=== PATIENT | male | born 1980 | race Caucasian/White ===

== ENCOUNTER 2017-02-05 14:07 | Emergency (ER) | payer OTHER ==
[~2017-02-05 14:07] MED LIST: KEP500 PO; TEG200 PO
[2017-02-05 15:47] VITALS: BP 134/89
== END 2017-02-05 15:47 | disposition home or self-care (01) ==
LOC: ED 14:07
DX: S52.134A Nondisplaced fracture of neck of right radius, initial encounter for closed fracture (principal); G40.909 Epilepsy, unspecified, not intractable, without status epilepticus; Z87.820 Personal history of traumatic brain injury; W01.0XXA Fall on same level from slipping, tripping and stumbling without subsequent striking against object, initial encounter; Y93.E1 Activity, personal bathing and showering; Y92.89 Other specified places as the place of occurrence of the external cause; Y99.8 Other external cause status

== ENCOUNTER 2017-08-09 22:37 | Emergency (ER) | payer OTHER ==
[~2017-08-09] VITALS: Ht 172.7 cm; Wt 86.2 kg
[2017-08-09 22:48] VITALS: Ht 172.7 cm; Wt 86.2 kg
[2017-08-10 01:22] LABS: AMPHETAMINE QUAL UR NONE DETECTED (NEG <=1000)
[2017-08-10 01:28] LABS: CALCIUM 8.9 mg/dL (8.5-10.1); CARBON DIOXIDE 27.8 mmol/L (21-32); CHLORIDE SERUM 101 mmol/L (98-107); CREATININE SERUM 0.7 mg/dL (0.7-1.3); GFR1 > 60 mL/min; GLUCOSE SERUM 99 mg/dL (74-106); POTASSIUM SERUM 4.4 mmol/L (3.5-5.1); SODIUM SERUM 138 mmol/L (136-145)
[2017-08-10 01:53] VITALS: BP 122/75
== END 2017-08-10 01:53 | disposition home or self-care (01) ==
LOC: ED 22:37
PROVIDERS: Emergency Medicine
DX: R56.9 Unspecified convulsions (principal)
CPT/HCPCS: 36415; G0480

== ENCOUNTER 2017-10-18 16:09 | Emergency (ER) | payer OTHER ==
[~2017-10-18] VITALS: Ht 172.7 cm; Wt 72.6 kg
[2017-10-18 16:16] VITALS: Ht 172.7 cm; Wt 72.6 kg
[2017-10-18 16:56] LABS: BASOPHIL % 0.6 % (0-2); PLATELET COUNT 256 x10^3mcL (130-400); RED CELL DISTRIBUTION WIDTH 13.4 % (11.5-14.5)
[2017-10-18 17:15] LABS: CALCIUM 8.3 mg/dL (8.5-10.1); CARBON DIOXIDE 25.1 mmol/L (21-32); CHLORIDE SERUM 99 mmol/L (98-107); CREATININE SERUM 0.7 mg/dL (0.7-1.3); GFR1 > 60 mL/min; GLUCOSE SERUM 101 mg/dL (74-106); POTASSIUM SERUM 4.1 mmol/L (3.5-5.1); SODIUM SERUM 133 mmol/L (136-145)
[2017-10-18 17:27] LABS: ALBUMIN 3.7 g/dL (3.4-5.0); ALKALINE PHOSPHATASE 100 U/L (46-116); ALT/SGPT 22 U/L (16-63); AST/SGOT 15 U/L (15-37); BILIRUBIN TOTAL 0.2 mg/dL (0.20-1.00); HDL CHOLESTEROL 45 mg/dL (40-60); TOTAL PROTEIN, SERUM 7.8 g/dL (6.4-8.2); TRIGLYCERIDES 134 mg/dL (<150)
[2017-10-18 17:29] LABS: T3 TOTAL 1.05 ng/mL
[2017-10-18 17:33] LABS: FREE T4 0.69 ng/dL (0.76-1.46); FREE THYROXINE INDEX 1.6 ug/dL (1.4-4.5); T4(THYROXINE) 4.9 ug/dL (4.7-13.3)
[2017-10-18 17:50] LABS: UA SPECIFIC GRAVITY 1.025 (1.005-1.035); microscopic required? YES; urine erythrocyte 1+ (NEGATIVE)
[2017-10-18 18:31] LABS: CHOLESTEROL 165 mg/dL (<200); CHOLESTEROL/HDL RATIO 3.7
[2017-10-18 18:50] VITALS: BP 117/73
== END 2017-10-18 18:50 | disposition home or self-care (01) ==
LOC: ED 16:09
PROVIDERS: Specialist
DX: S06.9X0A Unspecified intracranial injury without loss of consciousness, initial encounter (principal); G40.909 Epilepsy, unspecified, not intractable, without status epilepticus; R53.1 Weakness; X58.XXXA Exposure to other specified factors, initial encounter; Y93.89 Activity, other specified; Y92.89 Other specified places as the place of occurrence of the external cause; Y99.8 Other external cause status
CPT/HCPCS: 36415; 83880; 84439; J7030

== ENCOUNTER 2018-02-09 20:21 | Emergency (ER) | payer OTHER ==
[~2018-02-09] VITALS: Ht 170.2 cm; Wt 86.2 kg
[2018-02-09 21:18] VITALS: Ht 170.2 cm; Wt 86.2 kg
[2018-02-09 21:24] LABS: BASOPHIL % 0.3 % (0-2); PLATELET COUNT 291 x10^3mcL (130-400); RED CELL DISTRIBUTION WIDTH 13.4 % (11.5-14.5)
[2018-02-09] MEDS ORDERED: CITALOPRAM HYDR10 M1 PO (21:27)
[2018-02-09 21:33] LABS: CALCIUM 8.6 mg/dL (8.5-10.1); CARBON DIOXIDE 28.5 mmol/L (21-32); CHLORIDE SERUM 101 mmol/L (98-107); CREATININE SERUM 0.8 mg/dL (0.7-1.3); GFR1 > 60 mL/min; GLUCOSE SERUM 68 mg/dL (74-106); POTASSIUM SERUM 3.7 mmol/L (3.5-5.1); SODIUM SERUM 136 mmol/L (136-145)
[2018-02-09 21:36] LABS: ALBUMIN 3.9 g/dL (3.4-5.0); ALKALINE PHOSPHATASE 91 U/L (46-116); ALT/SGPT 31 U/L (16-63); AST/SGOT 20 U/L (15-37); BILIRUBIN TOTAL 0.2 mg/dL (0.20-1.00); MAGNESIUM 1.9 mg/dL (1.8-2.4); TOTAL PROTEIN, SERUM 7.9 g/dL (6.4-8.2)
[2018-02-09 22:02] LABS: UA SPECIFIC GRAVITY 1.015 (1.005-1.035); microscopic required? YES; urine erythrocyte TRACE (NEGATIVE)
[2018-02-09 22:15] LABS: AMPHETAMINE QUAL UR NONE DETECTED (See below)
[2018-02-10 00:12] VITALS: BP 124/83
== END 2018-02-10 00:12 | disposition home or self-care (01) ==
LOC: ED 20:21
PROVIDERS: Emergency Medicine
DX: G40.909 Epilepsy, unspecified, not intractable, without status epilepticus (principal); G81.91 Hemiplegia, unspecified affecting right dominant side; Z98.2 Presence of cerebrospinal fluid drainage device
CPT/HCPCS: G0480; J2060

== ENCOUNTER 2018-03-10 19:53 | Emergency (ER) | payer OTHER ==
[~2018-03-10] VITALS: Ht 177.8 cm; Wt 83.9 kg
[~2018-03-10 19:53] MED LIST changes: +CITALOPRAM HYDR10 M1 PO
[2018-03-10 19:58] VITALS: Ht 177.8 cm; Wt 83.9 kg
[2018-03-10 21:15] LABS: UA SPECIFIC GRAVITY >=1.030 (1.005-1.035); microscopic required? YES; urine erythrocyte TRACE (NEGATIVE)
[2018-03-10 21:26] LABS: AMPHETAMINE QUAL UR NONE DETECTED (See below)
[2018-03-10 21:40] LABS: BASOPHIL % 0.2 % (0-2); PLATELET COUNT 252 x10^3mcL (130-400); RED CELL DISTRIBUTION WIDTH 13.6 % (11.5-14.5)
[2018-03-10 21:43] LABS: CALCIUM 8.6 mg/dL (8.5-10.1); CARBON DIOXIDE 27.1 mmol/L (21-32); CHLORIDE SERUM 105 mmol/L (98-107); CREATININE SERUM 0.7 mg/dL (0.7-1.3); GFR1 > 60 mL/min; GLUCOSE SERUM 107 mg/dL (74-106); POTASSIUM SERUM 3.9 mmol/L (3.5-5.1); SODIUM SERUM 141 mmol/L (136-145)
[2018-03-10 21:48] LABS: ALBUMIN 3.8 g/dL (3.4-5.0); ALKALINE PHOSPHATASE 98 U/L (46-116); ALT/SGPT 33 U/L (16-63); AST/SGOT 19 U/L (15-37); BILIRUBIN TOTAL 0.2 mg/dL (0.20-1.00)
[2018-03-10 21:51] LABS: TOTAL PROTEIN, SERUM 8.3 g/dL (6.4-8.2)
[2018-03-10 22:58] VITALS: BP 118/75
== END 2018-03-10 22:58 | disposition home or self-care (01) ==
LOC: ED 19:53
PROVIDERS: Emergency Medicine
DX: G40.909 Epilepsy, unspecified, not intractable, without status epilepticus (principal)
CPT/HCPCS: 36415; 83880; 90658; G0480

== ENCOUNTER 2018-07-16 19:34 | Emergency (ER) | payer OTHER ==
[~2018-07-16] VITALS: Ht 175.3 cm; Wt 86.2 kg
[2018-07-16 19:39] VITALS: Ht 175.3 cm; Wt 86.2 kg
[2018-07-16 21:06] LABS: CALCIUM 9.2 mg/dL (8.5-10.1); CHLORIDE SERUM 97 mmol/L (98-107); CREATININE SERUM 0.9 mg/dL (0.7-1.3); GFR1 > 60 mL/min; GLUCOSE SERUM 92 mg/dL (74-106); POTASSIUM SERUM 4.4 mmol/L (3.5-5.1); SODIUM SERUM 135 mmol/L (136-145)
[2018-07-16 22:57] VITALS: BP 125/76
== END 2018-07-16 22:57 | disposition home or self-care (01) ==
LOC: ED 19:34
PROVIDERS: Emergency Medicine
DX: G40.909 Epilepsy, unspecified, not intractable, without status epilepticus (principal); Z87.820 Personal history of traumatic brain injury

== ENCOUNTER 2018-08-15 20:52 | Emergency (ER) | payer OTHER ==
[~2018-08-15] VITALS: Ht 175.3 cm; Wt 81.6 kg
[2018-08-15 21:10] VITALS: Ht 175.3 cm; Wt 81.6 kg
[2018-08-15 22:35] LABS: CALCIUM 8.6 mg/dL (8.5-10.1); CARBON DIOXIDE 27.5 mmol/L (21-32); CHLORIDE SERUM 95 mmol/L (98-107); CREATININE SERUM 0.8 mg/dL (0.7-1.3); GFR1 > 60 mL/min; GLUCOSE SERUM 103 mg/dL (74-106); SODIUM SERUM 131 mmol/L (136-145)
[2018-08-15 23:37] VITALS: BP 130/78
== END 2018-08-15 23:37 | disposition home or self-care (01) ==
LOC: ED 20:52
PROVIDERS: Specialist
DX: G40.509 Epileptic seizures related to external causes, not intractable, without status epilepticus (principal); Z98.890 Other specified postprocedural states
CPT/HCPCS: 36415

== ENCOUNTER 2018-10-17 07:23 | Emergency (ER) | payer OTHER ==
[~2018-10-17] VITALS: Ht 165.1 cm; Wt 72.6 kg
[2018-10-17 07:28] VITALS: Ht 165.1 cm; Wt 72.6 kg
[2018-10-17 08:04] LABS: CALCIUM 9.1 mg/dL (8.5-10.1); CARBON DIOXIDE 25.8 mmol/L (21-32); CHLORIDE SERUM 99 mmol/L (98-107); CREATININE SERUM 0.8 mg/dL (0.7-1.3); GFR1 > 60 mL/min; GLUCOSE SERUM 98 mg/dL (74-106); POTASSIUM SERUM 4.3 mmol/L (3.5-5.1); SODIUM SERUM 137 mmol/L (136-145)
[2018-10-17 08:18] LABS: ALBUMIN 3.9 g/dL (3.4-5.0); ALKALINE PHOSPHATASE 97 U/L (46-116); ALT/SGPT 29 U/L (16-63); AST/SGOT 17 U/L (15-37); BILIRUBIN TOTAL 0.23 mg/dL (0.20-1.00)
[2018-10-17 08:26] LABS: TOTAL PROTEIN, SERUM 8.3 g/dL (6.4-8.2)
[2018-10-17 09:07] LABS: BASOPHIL % 0.3 % (0-2); PLATELET COUNT 315 x10^3mcL (130-400); RED CELL DISTRIBUTION WIDTH 13.7 % (11.5-14.5)
[2018-10-17 11:10] VITALS: BP 122/80
== END 2018-10-17 11:10 | disposition home or self-care (01) ==
LOC: ED 07:23
PROVIDERS: Emergency Medicine
DX: G40.909 Epilepsy, unspecified, not intractable, without status epilepticus (principal); S06.9X0A Unspecified intracranial injury without loss of consciousness, initial encounter; Z98.890 Other specified postprocedural states; X58.XXXA Exposure to other specified factors, initial encounter; Y93.89 Activity, other specified; Y92.89 Other specified places as the place of occurrence of the external cause; Y99.8 Other external cause status
CPT/HCPCS: 36415

== ENCOUNTER 2018-11-02 19:50 | Emergency (ER) | payer OTHER ==
[~2018-11-02] VITALS: Ht 175.3 cm; Wt 77.1 kg
[2018-11-02 19:54] VITALS: Ht 175.3 cm; Wt 77.1 kg
[2018-11-02 22:32] LABS: BASOPHIL % 0.6 % (0-2); PLATELET COUNT 293 x10^3mcL (130-400); RED CELL DISTRIBUTION WIDTH 13.7 % (11.5-14.5)
[2018-11-02 22:49] LABS: CALCIUM 8.9 mg/dL (8.5-10.1); CHLORIDE SERUM 98 mmol/L (98-107); CREATININE SERUM 0.9 mg/dL (0.7-1.3); GFR1 > 60 mL/min; GLUCOSE SERUM 100 mg/dL (74-106); POTASSIUM SERUM 4.3 mmol/L (3.5-5.1); SODIUM SERUM 134 mmol/L (136-145)
[2018-11-02 22:54] LABS: ALBUMIN 3.8 g/dL (3.4-5.0); ALKALINE PHOSPHATASE 99 U/L (46-116); ALT/SGPT 25 U/L (16-63); AST/SGOT 14 U/L (15-37); BILIRUBIN TOTAL 0.2 mg/dL (0.20-1.00); TOTAL PROTEIN, SERUM 8.1 g/dL (6.4-8.2)
[2018-11-02 23:33] VITALS: BP 136/92
== END 2018-11-02 23:33 | disposition home or self-care (01) ==
LOC: ED 19:50
PROVIDERS: Emergency Medicine
DX: G40.909 Epilepsy, unspecified, not intractable, without status epilepticus (principal); R89.2 Abnormal level of other drugs, medicaments and biological substances in specimens from other organs, systems and tissues; G91.9 Hydrocephalus, unspecified
CPT/HCPCS: 36415; Q0092

== ENCOUNTER 2018-11-25 11:26 | Emergency (ER) | payer OTHER ==
[~2018-11-25] VITALS: Ht 180.3 cm; Wt 95.3 kg
[2018-11-25 11:28] VITALS: Ht 180.3 cm; Wt 95.3 kg
[2018-11-25 14:01] VITALS: BP 120/77
== END 2018-11-25 15:41 | disposition home or self-care (01) ==
LOC: ED 11:26
DX: G40.909 Epilepsy, unspecified, not intractable, without status epilepticus (principal); G80.9 Cerebral palsy, unspecified; Z98.890 Other specified postprocedural states

== ENCOUNTER 2018-12-10 20:17 | Emergency (ER) | payer OTHER ==
[~2018-12-10] VITALS: Ht 175.3 cm; Wt 63.5 kg
[2018-12-10 20:23] VITALS: Ht 175.3 cm; Wt 63.5 kg
[2018-12-10 21:22] LABS: BASOPHIL % 0.8 % (0-2); PLATELET COUNT 309 x10^3mcL (130-400); RED CELL DISTRIBUTION WIDTH 13.4 % (11.5-14.5)
[2018-12-10 21:34] LABS: CALCIUM 9.4 mg/dL (8.5-10.1); CARBON DIOXIDE 25.2 mmol/L (21-32); CHLORIDE SERUM 98 mmol/L (98-107); CREATININE SERUM 0.7 mg/dL (0.7-1.3); GFR1 > 60 mL/min; GLUCOSE SERUM 110 mg/dL (74-106); SODIUM SERUM 133 mmol/L (136-145)
[2018-12-10 21:38] LABS: ALKALINE PHOSPHATASE 89 U/L (46-116); ALT/SGPT 22 U/L (16-63); AST/SGOT 14 U/L (15-37)
[2018-12-10 22:49] VITALS: BP 116/72
== END 2018-12-10 22:49 | disposition home or self-care (01) ==
LOC: ED 20:17
PROVIDERS: Emergency Medicine
DX: G40.909 Epilepsy, unspecified, not intractable, without status epilepticus (principal); Z98.890 Other specified postprocedural states
CPT/HCPCS: 36415

== ENCOUNTER 2019-01-25 19:00 | Emergency (ER) | payer OTHER ==
[~2019-01-25] VITALS: Ht 180.3 cm; Wt 90.7 kg
[2019-01-25 19:03] VITALS: Ht 180.3 cm; Wt 90.7 kg
[2019-01-25 21:21] VITALS: BP 115/77
== END 2019-01-25 21:21 | disposition home or self-care (01) ==
LOC: ED 19:00
DX: G40.909 Epilepsy, unspecified, not intractable, without status epilepticus (principal); G80.9 Cerebral palsy, unspecified
CPT/HCPCS: 36415

== ENCOUNTER 2019-04-20 19:14 | Emergency (ER) | payer OTHER ==
[~2019-04-20] VITALS: Ht 175.3 cm; Wt 77.1 kg
[2019-04-20 19:21] VITALS: Ht 175.3 cm; Wt 77.1 kg
[2019-04-20 20:11] VITALS: BP 117/79
[2019-04-20 20:47] LABS: CALCIUM 8.7 mg/dL (8.5-10.1); CARBON DIOXIDE 27.5 mmol/L (21-32); CREATININE SERUM 0.8 mg/dL (0.7-1.3); GFR1 > 60 mL/min; GLUCOSE SERUM 100 mg/dL (74-106)
[2019-04-20 20:52] LABS: ALKALINE PHOSPHATASE 111 U/L (46-116); ALT/SGPT 38 U/L (16-63); AST/SGOT 25 U/L (15-37)
[2019-04-20 20:56] LABS: CHLORIDE SERUM 100 mmol/L (98-107); POTASSIUM SERUM 4.6 mmol/L (3.5-5.1); SODIUM SERUM 136 mmol/L (136-145); TOTAL PROTEIN, SERUM 8.7 g/dL (6.4-8.2)
== END 2019-04-20 21:56 | disposition home or self-care (01) ==
LOC: ED 19:14
PROVIDERS: Emergency Medicine
DX: G40.909 Epilepsy, unspecified, not intractable, without status epilepticus (principal); Z98.890 Other specified postprocedural states
CPT/HCPCS: J7030

== ENCOUNTER 2019-06-07 19:55 | Emergency (ER) | payer OTHER ==
[2019-06-07 21:32] LABS: UA SPECIFIC GRAVITY >=1.030 (1.005-1.035); microscopic required? YES; urine erythrocyte 1+ (NEGATIVE)
[2019-06-07 21:33] LABS: CALCIUM 8.4 mg/dL (8.5-10.1); CHLORIDE SERUM 98 mmol/L (98-107); CREATININE SERUM 0.9 mg/dL (0.7-1.3); GFR1 > 60 mL/min; GLUCOSE SERUM 123 mg/dL (74-106); POTASSIUM SERUM 4.1 mmol/L (3.5-5.1); SODIUM SERUM 133 mmol/L (136-145)
[2019-06-07 21:36] LABS: BASOPHIL % 0.3 % (0-2); PLATELET COUNT 306 x10^3mcL (130-400); RED CELL DISTRIBUTION WIDTH 13.2 % (11.5-14.5)
[2019-06-07 21:37] LABS: ALBUMIN 3.7 g/dL (3.4-5.0); ALKALINE PHOSPHATASE 94 U/L (46-116); ALT/SGPT 26 U/L (16-63); AST/SGOT 25 U/L (15-37); BILIRUBIN TOTAL 0.15 mg/dL (0.20-1.00); MAGNESIUM 2.2 mg/dL (1.8-2.4)
[2019-06-07 21:44] LABS: AMPHETAMINE QUAL UR NONE DETECTED (See below)
[2019-06-07 22:41] VITALS: BP 126/79
== END 2019-06-07 22:41 | disposition home or self-care (01) ==
LOC: ED 19:55
PROVIDERS: Emergency Medicine
DX: G40.909 Epilepsy, unspecified, not intractable, without status epilepticus (principal); I69.951 Hemiplegia and hemiparesis following unspecified cerebrovascular disease affecting right dominant side; Z98.890 Other specified postprocedural states
CPT/HCPCS: 36415; 82962; G0480

== ENCOUNTER 2019-07-04 19:16 | Emergency (ER) | payer OTHER ==
[~2019-07-04] VITALS: Ht 172.7 cm; Wt 81.6 kg
[2019-07-04 19:32] VITALS: Ht 172.7 cm; Wt 81.6 kg
[2019-07-04 21:47] LABS: BASOPHIL % 0.5 % (0-2); PLATELET COUNT 296 x10^3mcL (130-400); RED CELL DISTRIBUTION WIDTH 13.7 % (11.5-14.5)
[2019-07-04 22:03] LABS: microscopic required? NO
[2019-07-04 22:06] LABS: CHLORIDE SERUM 99 mmol/L (98-107); CREATININE SERUM 0.8 mg/dL (0.7-1.3); GFR1 > 60 mL/min; GLUCOSE SERUM 104 mg/dL (74-106); POTASSIUM SERUM 4.3 mmol/L (3.5-5.1); SODIUM SERUM 132 mmol/L (136-145)
[2019-07-04 22:07] LABS: CALCIUM 8.7 mg/dL (8.5-10.1)
[2019-07-04 22:17] LABS: ALBUMIN 3.6 g/dL (3.4-5.0); ALT/SGPT 30 U/L (16-63); AST/SGOT 18 U/L (15-37); BILIRUBIN TOTAL 0.2 mg/dL (0.20-1.00); TOTAL PROTEIN, SERUM 7.9 g/dL (6.4-8.2)
[2019-07-04 22:18] LABS: ALKALINE PHOSPHATASE 115 U/L (46-116)
[2019-07-04 22:43] LABS: UA SPECIFIC GRAVITY 1.015 (1.005-1.035); urine erythrocyte NEGATIVE (NEGATIVE)
[2019-07-05 00:06] VITALS: BP 105/69
== END 2019-07-05 00:06 | disposition home or self-care (01) ==
LOC: ED 19:16
PROVIDERS: Emergency Medicine
DX: G40.909 Epilepsy, unspecified, not intractable, without status epilepticus (principal)
CPT/HCPCS: 36415; J2060

== ENCOUNTER 2019-07-20 19:53 | Emergency (ER) | payer OTHER ==
[~2019-07-20] VITALS: Ht 172.7 cm; Wt 90.7 kg
[2019-07-20 20:02] VITALS: Ht 172.7 cm; Wt 90.7 kg
[2019-07-20 22:18] VITALS: BP 123/70
== END 2019-07-20 22:18 | disposition home or self-care (01) ==
LOC: ED 19:53
DX: R56.9 Unspecified convulsions (principal); Z98.890 Other specified postprocedural states
CPT/HCPCS: J2060

== ENCOUNTER 2020-01-18 21:26 | Inpatient (IN) | payer OTHER ==
[~2020-01-18] VITALS: Ht 172.7 cm; Wt 76.7 kg
[2020-01-18 21:38] VITALS: Ht 172.7 cm; Wt 76.7 kg
--- NOTE | 2020-01-18 21:46 | NUR ---
MD SCHOFIELD AT BEDSIDE. PATIENT COMBATIVE AND UNCOOPERATIVE WITH CARE. TO RECEIVE 2MG IM ATIVAN. WILL COMPLETE EKG AND DISTRICT ADVISER S/P MEDICATION ADMIN.
--- NOTE | 2020-01-18 21:55 | NUR ---
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 PT HAS HX TBI, PATIENTS MOTHER IS HOME PERFORMANCE IMPROVEMENT DIRECTOR. PATIENT TAKES TEGRETOL AND KEPPRA AT HOME AND HAS NOT MISSED ANY RECENT DOSES. UPON ARRIVAL PATIENT IS MUMBLING AND MOANING INCOMPREHENSIBLE SPEECH, GCS-11. -ORAL TRAUMA -INCONTINENCE. RIGHT SIDED WEAKNESS NOTED, BASELINE PER EMS. PATIENT NOTED TO BE COMBATIVE AND UNCOOPERATIVE WITH CARE. ATTEMPTING TO CONNECT PATIENT TO MONITOR AND PERFORM EKG. MD SCHOFIELD AT BEDSIDE.
--- NOTE | 2020-01-18 22:12 | NUR ---
SPOKE WITH PATIENTS MOTHER, TONNY. UPDATED ON PLAN OF CARE. PATIENTS MOTHER TO BE BROUGHT TO BEDSIDE TO PROVIDE BETTER RECENT EVENT HISTORY AND CALM PATIENT DOWN.
--- NOTE | 2020-01-18 22:25 | NUR ---
MOTHER TONNY AT BEDSIDE, MOTHER DENIES THAT PATIENT HAS ANY COVID SX OR RECENT EXPOSURE. PT HAS NOT BEEN TESTED. PATIENT TAKEN OFF ISOLATION AT THIS TIME.
--- NOTE | 2020-01-18 22:58 | NUR ---
ATTEMPTED PIV X3, UNSUCCESSFUL. PT DIFFICULT TO REDIRECT, PATIENT FLAILING ARMS DURING IV ATTEMPT. MD SCHOFIELD AWARE.
--- NOTE | 2020-01-18 23:00 | NUR ---
PATIENT TAKEN PT CT.
--- NOTE | 2020-01-18 23:14 | NUR ---
PER MD SCHOFIELD, NO IV ACCESS NEEDED AT THIS TIME. WILL REASSESS. REPORT GIVEN TO HAYLEE FINN TO ASSUME CARE.
--- NOTE | 2020-01-18 23:21 | NUR ---
RECEIVED FROM PATRICIA LEACH. PT RESTING ON GURNEY IN NAD. PT BREATHING EVEN AND UNLABORED. PT MOTHER AT BEDSIDE. CM AND [address] WILL CONTINUE TO MONITOR.
[2020-01-19] VITALS (7 sets, daily range): BP systolic 107–125; BP diastolic 53–77
[2020-01-19 00:10] LABS: BASOPHIL % 1.4 % (0-2); PLATELET COUNT 297 x10^3mcL (130-400); RED CELL DISTRIBUTION WIDTH 13.2 % (11.5-14.5)
[2020-01-19 00:24] LABS: CALCIUM 8.2 mg/dL (8.5-10.1); CARBON DIOXIDE 29.8 mmol/L (21-32); CHLORIDE SERUM 94 mmol/L (98-107); CREATININE SERUM 0.8 mg/dL (0.7-1.3); GFR1 > 60 mL/min; GLUCOSE SERUM 92 mg/dL (74-106); POTASSIUM SERUM 3.9 mmol/L (3.5-5.1); SODIUM SERUM 127 mmol/L (136-145)
--- NOTE | 2020-01-19 01:42 | NUR ---
PER MD SCHOFIELD PLACE ULTRASOUND MACHINE AT BEDSIDE DUE TO PT NEED NEEDING IV.
--- NOTE | 2020-01-19 02:11 | NUR ---
ULTRASOUND GUIDED IV PLACED BY MD SCHOFIELD. IV FLUSHES WITH NO COMPLICATIONS.
--- NOTE | 2020-01-19 02:52 | NUR ---
REPORT CALLED TO TARIQ LEACH AT EXT [id number]
[2020-01-19 03:03] LABS: CHOLESTEROL/HDL RATIO 4.3
--- NOTE | 2020-01-19 03:03 | NUR ---
RECEIVED PT FROM ED VIA [facility], ACCOMPANIED BY NURSE, ASSESSMENT PERFORMED AT THIS TIME (SEE ADMISSION ASSESSMENT) PT IS A/OX3 TO PERSON, PLACE, AND SITUATION, PT SPEAKS SLOW, AND SPEACH IS SLURRED, PT FOLLOWS COMMANDS, PT DENIES PAIN OR SOB, PT HAS MILD RIGHT SIDED WEAKNESS PER MOTHER IS BASELINE, PERIPHERAL PULSES PALPABLE THROUGHOUT, NO EDEMA NOTED AT THIS TIME, RESPIRATIONS EVEN AND UNLABORED, LUNG SOUNDS CTA, ON RA, IV TO THE LEFT BICEP 18G, CDI, NO REDNESS OR SWELLING, TELE 23 SB, ALL PT NEEDS ATTENDED TO AT THIS TIME, PT ORIENTED TO CALL LIGHT CONTROLS, CALL LIGHT WITHIN REACH, SIEZURE PRECAUTIONS IN PLACE, BED IN THE LOWEST POSITION, SAFETY PRECAUTIONS IN PLACE WILL CONTINUE TO MONITOR.
[2020-01-19 03:09] LABS: T3 TOTAL 1.12 ng/mL
--- NOTE | 2020-01-19 03:11 | NUR ---
PT TRANSFERED TO TELE AT THIS TIME BY MYSELF AND LANEY EMT. PT TRANSPORTED VIA GURNEY WITH TRANSPORT CM IN PLACE. PT AWAKE AND ALERT, AT BASELINE. TARIQ RN AT BEDSIDE TO ASSUME CARE OF PT AT THIS TIME. IV INTACT AND FLUSHES WITH NO COMPLICATIONS.
[2020-01-19 03:13] LABS: FREE T4 0.94 ng/dL (0.76-1.46); FREE THYROXINE INDEX 2.2 ug/dL (1.4-4.5)
--- NOTE | 2020-01-19 05:49 | NUR ---
PT RESTED IN BED SINCE ADMISSION, PT DENIED PAIN OR SOB THROUGH NIGHT, PT STABLE AT THIS TIME, SAFETY PRECAUTIONS IN PLACE, SIEZURE PRECAUTIONS IN PLACE WILL CONTINUE TO MONITOR AND ENDORSE CARE TO ONCOMING RN
--- NOTE | 2020-01-19 07:25 | NUR ---
RECEIVED PT IN BED ASLEEP, EASILY AROUSABLE. ON TELE 23. IV SITE TO BRENDEN WITH NS AT 70CC/HR. ON RA, NO ACUTE RESPIRATORY DISTRESS. NO FACIAL GRIMACING, DENIES PAIN OR DISCOMFORT. SEIZURE PRECAUTION IMPLEMENTED WITH PADDED SIDE RAILS. BED IN LOWEST POSITION. CALL LIGHT WITHIN REACH. WILL CONTINUE TO MONITOR.
--- NOTE | 2020-01-19 11:40 | NUR ---
BED ALARM WAS SOUNDING FROM PATIENT'S ROOM. UPON ARRIVAL, FOUND PATIENT LAYING FLAT NEXT TO BED DISROBED WITH NO GOWN, SNOWBOARDING INSTRUCTOR PRESENT TO ASSIST. ASKED PATIENT HOW HE ENDED UP ON THE FLOOR, PT STATED "I'M LOOKING FOR MY WALLET". NO VISIBLE INJURIES, NO BUMPS OR REDNESS TO HEAD. VERBALLY RESPONSIVE BUT SLOW TO RESPOND. ABLE TO MOVE ALL EXTREMITIES SLOWLY WITH NO NOTABLE SIGNIFICANT WEAKNESS. ASSISTED PT BACK TO BED, FULL BODY ASSESSMENT DONE, NO SKIN ISSUES NOTED. ASKED PATIENT IF HE USED THE CALL LIGHT PT STATES "I'M LOOKING FOR MY WALLET", CHECKED PATIENT'S INVENTORY AND NO WALLET FOUND, WILL VERIFY WITH TONNY (MOTHER). BED IN LOWEST POSITION, CALL LIGHT WITHIN REACH, INSTRUCTED PATIENT TO USE CALL LIGHT FOR ASSISTANCE. PT STATED UNDERSTANDING. ABLE TO DEMONSTRATE PROPER USE OF CALL LIGHT.
--- NOTE | 2020-01-19 11:45 | NUR ---
REPORTED PATIENT'S FALL TO . PER WILL PLACE ADDITIONAL ORDERS. WILL CONTINUE TO MONITOR NEURO AND STATUS.
--- NOTE | 2020-01-19 11:50 | NUR ---
CHARGE NURSE MADE AWARE OF FALL. WILL CONTINUE TO MONITOR FOR NEUROCHECKS PER PROTOCOL.
--- NOTE | 2020-01-19 12:35 | NUR ---
PATIENT WAS PICKED UP BY RADIOLOGY STAFF VIA HOSPITAL BED FOR SCHEDULED CT SCAN OF HEAD.
--- NOTE | 2020-01-19 12:50 | NUR ---
RETURNED TO UNIT FROM SCHEDULED CT. PLACED BACK ON TELE 23. CALL LIGHT WITHIN REACH. EMPHASIZED USE OF CALL LIGHT. PT STATES UNDERSTANDING
--- NOTE | 2020-01-19 13:30 | NUR ---
SPOKE WITH TONNY CIFUENTES (MOTHER) MADE AWARE OF PATIENT'S FALL AND NEW ORDERS. ALL QUESTIONS OR CONCERNS ADDRESSED AT THIS TIME.
[2020-01-19 18:07] LABS: CALCIUM 8.5 mg/dL (8.5-10.1); CARBON DIOXIDE 28.3 mmol/L (21-32); CHLORIDE SERUM 97 mmol/L (98-107); CREATININE SERUM 0.7 mg/dL (0.7-1.3); GFR1 > 60 mL/min; GLUCOSE SERUM 96 mg/dL (74-106); POTASSIUM SERUM 4.3 mmol/L (3.5-5.1); SODIUM SERUM 132 mmol/L (136-145)
[2020-01-19 18:35] LABS: BASOPHIL % 0.4 % (0-2); PLATELET COUNT 298 x10^3mcL (130-400); RED CELL DISTRIBUTION WIDTH 13.1 % (11.5-14.5)
--- NOTE | 2020-01-19 18:44 | NUR ---
PT IN BED ASLEEP, EASILY AROUSABLE. ON TELE 23. IV SITE TO BRENDEN WITH NS AT 70CC/HR. ON RA, NO ACUTE RESPIRATORY DISTRESS. DENIES PAIN OR DISCOMFORT AT THIS TIME. SEIZURE PRECAUTION IMPLEMENTED WITH PADDED SIDE RAILS, NO NOTED SEIZURE WITHIN THE SHIFT. BED IN LOWEST POSITION. CALL LIGHT WITHIN REACH. WILL ENDORSE CARE TO INCOMING NURSE.
--- NOTE | 2020-01-19 19:30 | NUR ---
RECEIVED PT FROM THE DAY SHIFT NURSE. AWAKE A/O X 3. ABLE TO MAKE NEEDS KNOWN. SPEECH IS SLOW AND SLURRED AT TIMES. NO C/O DIZZINESS. HX OF SEIZURE, ON SEIZURE PRECAUTION. NO EPISODE OF SEIZURE AT THIS TIME. PUPILS ARE ROUND UNEQUAL REACTIVE TO LIGHT. CRISTIAN EYE MOVEMENT SLUGGISH, MORE PROMINENT ON THE RIGT EYE. PT ON TELE 23 SB WITH HR 54-56. NO C/O CHEST PAIN, NO SOB. RESP EVEN AND UNLABORED. DIMINISHED LUNG SOUND ON THE RIGHT SIDE. SPO2 96% ON RA. RADIAL AND PEDAL PULSE STRONG. ABDOMEN SOFT AND FLAT, ACTIVE BOWEL SOUND X4, NO C/O N/V.PT ABLE TO VOID FREELY USING URINAL. GENERALIZED WEKANESS NOTED, ABLE TO REPOSITION IN BED, PT SP FALL 8/2 PER REPORT, CONT ON FALL PRECAUTION MONTIORING.IV SITE TO BRENDEN ON NS AT 70 ML/ HR.NO C/O PAIN AT THIS TIME. WILL CONT TO MONITOR FOR CHANGES IN CONDITION. CALL LIGHT WITHIN REACH AT ALL TIMES, BED IN LOWEST POSITION.
--- NOTE | 2020-01-19 21:46 | NUR ---
tegretol 600 mg not given, medication on hold per dr funes. tegretol level 15.
--- NOTE | 2020-01-20 00:55 | NUR ---
FOUND IV PULLED OUT. PT ALSO REMOVED THE TELE MONITOR. PT STATES HE DID NOT DO IT. PT HARD STICK. US GUIDED IV INSERTED BY MD IN ED PRIOR TO ADMISSION. DR HERNANDEZ MADE AWARE. OK TO HOLD IV FLUIDS AT THIS TIME.
--- NOTE | 2020-01-20 02:14 | NUR ---
PT IN BED APPEARS TO BE RESTING COMFORTABLY WITH EYES CLOSED. RESP IS EVEN AND UNLABORED. CONT ON HEART MONITOR, IV FLUIDS REMAINED ON HOLD PER MD ORDER DUE TO PT PULLED OUT IV ACCESS. SAFETY MEASURES IN PLACED, CALL LIGHT WITHIN REACH AT ALL TIMES, BED ALARM ON TO ENSURE SAFETY. WILL CONT TO MONITOR FOR CHANGES IN CONDITION.
[2020-01-20 05:34] VITALS: BP 106/81
--- NOTE | 2020-01-20 06:33 | NUR ---
PT IN BED AWAKE, APPEARS TO BE RESTING COMFORTABLY. PT HAS NO C/O PAIN AT THIS TIME. RESP IS EVEN AND UNLABORED. NEEDS ATTENDED AND MET FREQUENT VISUAL MONITORING RENDERED. NO EPISODE OF SEIZURE. CONT PT ON SEIZURE PRECAUTION. CONT ON FALL PRECAUTION. BED ALARM ON, BED IN THE LOWEST POSITION. CALL LIGHT WITHIN REACH. WILL CONT TO MONITOR AND WILL ENDORSE TO NEXT SHIFT NURSE.
[2020-01-20 07:46] LABS: BASOPHIL % 0.5 % (0-2); PLATELET COUNT 305 x10^3mcL (130-400); RED CELL DISTRIBUTION WIDTH 13.4 % (11.5-14.5)
[2020-01-20 08:04] LABS: CALCIUM 8.5 mg/dL (8.5-10.1); CARBON DIOXIDE 28.5 mmol/L (21-32); CHLORIDE SERUM 101 mmol/L (98-107); CREATININE SERUM 0.7 mg/dL (0.7-1.3); GFR1 > 60 mL/min; GLUCOSE SERUM 79 mg/dL (74-106); MAGNESIUM 2.1 mg/dL (1.8-2.4); PHOSPHOROUS 4.1 mg/dL (2.5-4.9); POTASSIUM SERUM 4.1 mmol/L (3.5-5.1); SODIUM SERUM 137 mmol/L (136-145)
--- NOTE | 2020-01-20 09:00 | NUR ---
SEEN IN BED AAOX3. SLOW VERBAL RESPONDED BUT ABLE TO ASKS FOR HELP APPROPRIATELY. STATED NEED HELP WITH BREAKFAST. GEN BODY WEAKNESS, FALL PRECAUTION ALERT, BED ALARM ON. REORIENTATION PROVIDED. CALL LIGHT REINSTRUCTED AND PLACED WITHIN EASY REACH. SIDERAILS UP X3. WILL CONTINUE TO MONITOR.
[2020-01-20 09:04] VITALS: BP 112/59
--- NOTE | 2020-01-20 10:30 | NUR ---
AM SCHEDULED MEDS CRUSHED AND GIVE WITH APPLESAUCE. TOLERATED WELL.
--- NOTE | 2020-01-20 11:28 | NUR ---
ASSISTED BY NURSING INFORMATICS SPECIALIST TO BATHROOM, SLOW GAIT AND WEAK, ASSISTED BACK TO BED AFTER HAD BM.
[2020-01-20] MEDS ORDERED: KEP500 PO (11:37)
[2020-01-20 12:25] VITALS: BP 116/70
--- NOTE | 2020-01-20 14:30 | NUR ---
PATIENT AND HIS MOTHER MADE AWARE OF DISCHARGE HOME ORDER. AWAITING FOR PATIENT'S MOTHER TO CLASSER PATIENT.
--- NOTE | 2020-01-20 17:15 | NUR ---
TELEMETRY RETURNED TO [place]. BROUGHT VIA WHEELCHAIR TO [facility]. DISCHARGE INSTRUCTION GIVEN TO PATIENT'S MOTHER, VERBALIZED UNDERSTANDING. ASSISTED TO GET INSIDE THE CAR. CONDITION STABLE UPON DISCHARGE HOME.
== END 2020-01-20 17:06 | disposition home or self-care (01) | DRG 53 ==
LOC: ED 21:26 → DU 01-19 01:54
PROVIDERS: Emergency Medicine; ADMIT Internal Medicine; ATTEND Internal Medicine
DX: G40.409 Other generalized epilepsy and epileptic syndromes, not intractable, without status epilepticus (principal); E87.1 Hypo-osmolality and hyponatremia; E78.5 Hyperlipidemia, unspecified; Z79.899 Other long term (current) drug therapy; Z90.49 Acquired absence of other specified parts of digestive tract
CPT/HCPCS: 84439; G0378; J1953; J2060; J7030; Q0092

== ENCOUNTER 2020-01-30 20:26 | Emergency (ER) | payer OTHER ==
[2020-01-30 21:14] LABS: BASOPHIL % 0.5 % (0-2); PLATELET COUNT 319 x10^3mcL (130-400); RED CELL DISTRIBUTION WIDTH 13.6 % (11.5-14.5)
[2020-01-30 22:40] VITALS: BP 118/82
== END 2020-01-30 23:30 | disposition home or self-care (01) ==
LOC: ED 20:26
PROVIDERS: Emergency Medicine
DX: S06.9X0A Unspecified intracranial injury without loss of consciousness, initial encounter (principal); R56.9 Unspecified convulsions; Z98.890 Other specified postprocedural states; X58.XXXA Exposure to other specified factors, initial encounter; Y93.89 Activity, other specified; Y92.89 Other specified places as the place of occurrence of the external cause; Y99.8 Other external cause status

== ENCOUNTER 2020-03-08 19:23 | Emergency (ER) | payer OTHER ==
[~2020-03-08] VITALS: Ht 170.2 cm; Wt 81.6 kg
[2020-03-08 19:41] VITALS: Ht 170.2 cm; Wt 81.6 kg
[2020-03-08 21:16] LABS: PLATELET COUNT 302 x10^3mcL (130-400); RED CELL DISTRIBUTION WIDTH 13.4 % (11.5-14.5)
[2020-03-08 21:38] LABS: CALCIUM 8.8 mg/dL (8.5-10.1); CARBON DIOXIDE 25.5 mmol/L (21-32); CHLORIDE SERUM 98 mmol/L (98-107); CREATININE SERUM 0.7 mg/dL (0.7-1.3); GFR1 > 60 mL/min; GLUCOSE SERUM 99 mg/dL (74-106); POTASSIUM SERUM 3.8 mmol/L (3.5-5.1); SODIUM SERUM 133 mmol/L (136-145)
[2020-03-08 21:44] LABS: ALBUMIN 3.9 g/dL (3.4-5.0); ALKALINE PHOSPHATASE 81 U/L (46-116); ALT/SGPT 29 U/L (16-63); AST/SGOT 19 U/L (15-37); BILIRUBIN TOTAL 0.2 mg/dL (0.20-1.00)
[2020-03-08 23:57] VITALS: BP 128/79
== END 2020-03-08 23:57 | disposition home or self-care (01) ==
LOC: ED 19:23
PROVIDERS: Emergency Medicine
DX: R56.9 Unspecified convulsions (principal); E87.1 Hypo-osmolality and hyponatremia; Z98.890 Other specified postprocedural states

== ENCOUNTER 2020-05-04 10:12 | Emergency (ER) | payer OTHER ==
[~2020-05-04] VITALS: Ht 170.2 cm; Wt 77.1 kg
[~2020-05-04 10:12] MED LIST changes: +CELEXA10 MG; +EQUETRO200 MG; +EQUETRO200 MG PO; +KEPPRA500 MG PO; +KEPPRA750 MG; +KEPPRA750 MG PO; +LAMICTAL150 MG PO; +TEGRETOL200 MG PO
[2020-05-04 10:42] VITALS: BP 121/87; Ht 170.2 cm; Wt 77.1 kg
== END 2020-05-04 13:52 | disposition home or self-care (01) ==
LOC: ED 10:12
DX: S43.004A Unspecified dislocation of right shoulder joint, initial encounter (principal); Z98.890 Other specified postprocedural states; W18.39XA Other fall on same level, initial encounter; Y93.89 Activity, other specified; Y92.89 Other specified places as the place of occurrence of the external cause; Y99.8 Other external cause status

== ENCOUNTER 2020-08-27 08:31 | Emergency (ER) | payer OTHER ==
[~2020-08-27] VITALS: Ht 170.2 cm; Wt 68.0 kg
[2020-08-27 08:37] VITALS: Ht 170.2 cm; Wt 68.0 kg
[2020-08-27 10:04] LABS: BASOPHIL % 1.1 % (0.2-1.5); PLATELET COUNT 329 x10^3mcL (152-348); RED CELL DISTRIBUTION WIDTH 13.2 % (12.1-16.2)
[2020-08-27 10:36] LABS: CALCIUM 8.7 mg/dL (8.5-10.1); CARBON DIOXIDE 24.5 mmol/L (21-32); CHLORIDE SERUM 97 mmol/L (98-107); CREATININE SERUM 0.7 mg/dL (0.7-1.3); GFR1 > 60 mL/min; GLUCOSE SERUM 99 mg/dL (74-106); POTASSIUM SERUM 4.1 mmol/L (3.5-5.1); SODIUM SERUM 132 mmol/L (136-145)
[2020-08-27 10:41] LABS: ALBUMIN 3.6 g/dL (3.4-5.0); ALKALINE PHOSPHATASE 105 U/L (46-116); ALT/SGPT 25 U/L (16-63); AST/SGOT 15 U/L (15-37); BILIRUBIN TOTAL 0.3 mg/dL (0.20-1.00); TOTAL PROTEIN, SERUM 7.5 g/dL (6.4-8.2)
[2020-08-27 13:25] VITALS: BP 125/71
== END 2020-08-27 13:25 | disposition home or self-care (01) ==
LOC: ED 08:31
PROVIDERS: Emergency Medicine
DX: G40.909 Epilepsy, unspecified, not intractable, without status epilepticus (principal); Z87.820 Personal history of traumatic brain injury